=== PATIENT | male | born 1940 | race Caucasian/White ===

== ENCOUNTER 2016-12-12 12:54 | Inpatient (IN) | payer OTHER ==
[~2016-12-12] VITALS: Ht 170.2 cm; Wt 69.0 kg
[~2016-12-12 12:54] MED LIST: ALLOPURINOL100 MG PO; AMLODIPINE BESY10 MG PO; AMOXICILLIN500 M1 PO; BABY ASPIRIN81 M1 PO; BAYER ASPIRIN325 M1 PO; CLEAR LAX; COMPAZINE10 MG PO; DAILY VITAMIN1 EAC4 PO; MICRONASE2.5 MG PO; MULTIVITAMIN; PRAVACHOL80 MG PO; PRINIVIL20 MG PO; REFRESH LACRI-3.5 GM LEFT EYE; REFRESH TEARS15 ML LEFT EYE; SIMVASTATIN40 MG PO; TOPROL XL50 MG PO; VITAMIN D; XALATAN2.5 ML BOTH EYES; ZANTAC300 MG; ZESTRIL,PRINIVI20 MG PO; ZOLPIDEM TARTRAT5 MG PO
[2016-12-12 13:32] LABS: BASOPHIL COUNT 0.1 K/uL (0-0.1); EOSINOPHIL (%) 0.2 % (0-5); HEMATOCRIT 33.8 % (38.0-50.0); IMMATURE GRANULOCYTE (%) 0.6 % (0.0-0.7); IMMATURE GRANULOCYTE COUNT 0.1 K/uL; INSTRUMENT ABS NEUTROPHIL CT 12.6 K/uL; LYMPHOCYTE COUNT 1.3 K/uL (1.0-2.8); MCH 30.8 PG (29.0-34.0); MCHC 32.2 G/DL (30.0-36.0); MCV 95.5 FL (86-99); MEAN PLAT.VOLUME 9.7 uM^3 (9.0-12.4); MONOCYTE (%) 8.6 % (3-12); MONOCYTE COUNT 1.3 K/uL (0-0.8); NEUTROPHIL (%) 81.6 % (45-76); NEUTROPHIL COUNT 12.6 K/uL (1.8-6.4); PLATELET COUNT 329 K/uL (156-360); RBC DIS.WIDTH-CV 16.2 % (11.8-14.6); RBC DIS.WIDTH-SD 56.4 % (39-53); RED BLOOD COUNT 3.54 M/uL (4.00-5.50); WHITE BLOOD COUNT 15.5 K/uL (4.1-10.2)
[2016-12-12 13:40] LABS: CHLORIDE 107 mEq/L (99-109); POTASSIUM 4.8 mEq/L (3.7-5.4); SODIUM 138 mEq/L (136-147)
[2016-12-12 13:42] LABS: GLUCOSE 156 mg/dL (70-99)
[2016-12-12 13:44] LABS: ANION GAP 14 MEQ/L (2-14)
[2016-12-12 13:46] LABS: GFR ESTIMATE (CALCULATED) 57 mL/min/
[2016-12-12 13:47] LABS: UREA NITROGEN (BUN) 23 mg/dL (9-23)
[2016-12-12 13:52] LABS: TROP-I INTERPRETATION NEGATIVE; TROPONIN-I < 0.01 ng/mL (0.0-0.30)
[2016-12-12 14:34] LABS: BILIRUBIN NEGATIVE; BLOOD NEGATIVE; COLOR YELLOW ((YELLOW)); GLUCOSE (STRIP) NEGATIVE; KETONES 5; LEUKOCYTES NEGATIVE; NITRITE NEGATIVE; PROTEIN (STRIP) 30; SPECIFIC GRAVITY 1.017 (1.000-1.030); UROBILINOGEN 0.2 MG/DL (0.2-1.0)
[2016-12-12 14:44] LABS: ADD MIUA? NO; UCUL ADDED? NO
[2016-12-12] MEDS ORDERED: LISINOPRIL10 MG PO (15:28)
[2016-12-12] MEDS ORDERED: VITAMIN D32000 UNI1 PO (15:29)
[2016-12-12] MEDS ORDERED: ASPIR 8181 M1 PO (15:29)
[2016-12-12] MEDS ORDERED: FLONASE16 G1 BOTH NARES (15:31)
[2016-12-12] MEDS ORDERED: ADVAIR 250/501 DISK IH (15:32)
[2016-12-12] MEDS ORDERED: PROAIR RESPICL90 MCG IH (15:32)
[2016-12-12 18:14] VITALS: BP 93/45
[2016-12-12 20:15] LABS: INFLUENZA A VIRAL ANTIGEN NEGATIVE; INFLUENZA B VIRAL ANTIGEN NEGATIVE
[2016-12-12 20:55] LABS: METH RESISTANT S AUREUS PCR NEGATIVE (NEGATIVE)
[2016-12-12 20:57] LABS: PROBE CHECK PASS; SPECIMEN PROCESSING CONTROL PASS
[2016-12-12 22:47] VITALS: BP 82/38
[2016-12-13 05:04] VITALS: BP 99/54
[2016-12-13 06:30] LABS: EOSINOPHIL (%) 0.7 % (0-5); EOSINOPHIL COUNT 0.1 K/uL (0-0.3); HEMATOCRIT 28.4 % (38.0-50.0); IMMATURE GRANULOCYTE (%) 0.7 % (0.0-0.7); IMMATURE GRANULOCYTE COUNT 0.1 K/uL; LYMPHOCYTE COUNT 1.4 K/uL (1.0-2.8); MCH 31.2 PG (29.0-34.0); MCV 97.3 FL (86-99); MEAN PLAT.VOLUME 10.1 uM^3 (9.0-12.4); MONOCYTE (%) 10.8 % (3-12); MONOCYTE COUNT 1.2 K/uL (0-0.8); NEUTROPHIL (%) 74.4 % (45-76); PLATELET COUNT 261 K/uL (156-360); RBC DIS.WIDTH-CV 16.5 % (11.8-14.6); RBC DIS.WIDTH-SD 58.7 % (39-53); RED BLOOD COUNT 2.92 M/uL (4.00-5.50)
[2016-12-13 06:40] LABS: WHITE BLOOD COUNT 10.7 K/uL (4.1-10.2)
[2016-12-13 07:37] VITALS: BP 99/50
[2016-12-13 08:31] LABS: INTERNAL CONTROL VALID? YES
[2016-12-13 11:35] LABS: POINT-OF-CARE METER ID UU13113725
[2016-12-13 15:30] VITALS: BP 107/51
[2016-12-13 15:57] LABS: POINT-OF-CARE METER ID UU13113725
[2016-12-13 23:49] VITALS: BP 118/68
[2016-12-14 06:58] LABS: BASOPHIL COUNT 0.1 K/uL (0-0.1); EOSINOPHIL (%) 1.4 % (0-5); EOSINOPHIL COUNT 0.1 K/uL (0-0.3); HEMATOCRIT 29.9 % (38.0-50.0); IMMATURE GRANULOCYTE (%) 1.1 % (0.0-0.7); IMMATURE GRANULOCYTE COUNT 0.1 K/uL; INSTRUMENT ABS NEUTROPHIL CT 7.6 K/uL; LYMPHOCYTE COUNT 0.9 K/uL (1.0-2.8); MCH 31.1 PG (29.0-34.0); MCHC 32.4 G/DL (30.0-36.0); MCV 95.8 FL (86-99); MONOCYTE (%) 11.3 % (3-12); MONOCYTE COUNT 1.1 K/uL (0-0.8); NEUTROPHIL (%) 76.9 % (45-76); NEUTROPHIL COUNT 7.6 K/uL (1.8-6.4); PLATELET COUNT 291 K/uL (156-360); RBC DIS.WIDTH-CV 16.5 % (11.8-14.6); RED BLOOD COUNT 3.12 M/uL (4.00-5.50); WHITE BLOOD COUNT 9.9 K/uL (4.1-10.2)
[2016-12-14 07:40] VITALS: BP 103/51
[2016-12-14 11:02] VITALS: BP 101/54
[2016-12-14 15:55] VITALS: BP 105/53
[2016-12-14 23:12] VITALS: BP 116/64
[2016-12-15 07:53] VITALS: BP 95/54
[2016-12-15 16:32] VITALS: BP 104/58
[2016-12-15 23:07] VITALS: BP 125/58
[2016-12-16 07:00] VITALS: BP 148/75
[2016-12-16] MEDS ORDERED: AZITHROMYCIN500 M1 PO (11:48)
== END 2016-12-16 13:07 | disposition home health service (06) | DRG 177 ==
LOC: EME 12:54 → 5EAST 15:35 → EDOF 15:35 → 5EAST 17:38
PROVIDERS: Emergency Medicine; Hospitalist; Internal Medicine
DX: J15.8 Pneumonia due to other specified bacteria (principal); J96.01 Acute respiratory failure with hypoxia; C78.01 Secondary malignant neoplasm of right lung; C78.02 Secondary malignant neoplasm of left lung; J44.9 Chronic obstructive pulmonary disease, unspecified; E11.9 Type 2 diabetes mellitus without complications; I10 Essential (primary) hypertension; Z87.891 Personal history of nicotine dependence; Z85.89 Personal history of malignant neoplasm of other organs and systems
CPT/HCPCS: 71020; 71250; 80048; 80048 91; 81003; 82948; 83605; 84484; 85025; 85027; 87040; 87070; 87077; 87185; 87205; 87449; 87502; 87641; 93005; 94640; 94640 76; 94799; 99202; 99281; 99285; J0456; J0692; J0696; J1650; J1815; J2543; J3370; J7050

== ENCOUNTER 2017-06-13 18:55 | Inpatient (IN) | payer OTHER ==
[~2017-06-13] VITALS: Ht 162.6 cm; Wt 68.2 kg
[~2017-06-13 18:55] MED LIST changes: +ADVAIR 250/501 DISK IH; +ASPIR 8181 M1 PO; +AZITHROMYCIN500 M1 PO; +FLONASE16 G1 BOTH NARES; +LISINOPRIL10 MG PO; +PROAIR RESPICL90 MCG IH; +REFRESH TEARS15 ML BOTH EYES; -REFRESH TEARS15 ML LEFT EYE; +VITAMIN D32000 UNI1 PO
[2017-06-13 20:04] LABS: HEMATOCRIT 46.7 % (38.0-50.0); MCH 32.5 PG (29.0-34.0); MCHC 34.7 G/DL (30.0-36.0); MCV 93.8 FL (86-99); MEAN PLAT.VOLUME 10.7 uM^3 (9.0-12.4); PLATELET COUNT 171 K/uL (156-360); RBC DIS.WIDTH-CV 13.3 % (11.8-14.6); RBC DIS.WIDTH-SD 46.2 % (39-53); RED BLOOD COUNT 4.98 M/uL (4.00-5.50); WHITE BLOOD COUNT 10.6 K/uL (4.1-10.2)
[2017-06-13 20:21] LABS: CHLORIDE 103 mEq/L (99-109); SODIUM 140 mEq/L (136-147)
[2017-06-13 20:23] LABS: GLUCOSE 192 mg/dL (70-99)
[2017-06-13 20:25] LABS: ANION GAP 15 MEQ/L (2-14)
[2017-06-13 20:27] LABS: ALKALINE PHOSPHATASE 65 IU/L (3-129); GFR ESTIMATE (CALCULATED) 52 mL/min/
[2017-06-13 20:28] LABS: UREA NITROGEN (BUN) 26 mg/dL (9-23)
[2017-06-13 20:30] LABS: LIPASE 85 U/L (1.0-51.0)
[2017-06-13 20:42] LABS: ADD MIUA? YES; BILIRUBIN NEGATIVE; BLOOD NEGATIVE; COLOR YELLOW ((YELLOW)); GLUCOSE (STRIP) 50; KETONES 20; LEUKOCYTES NEGATIVE; NITRITE NEGATIVE; PROTEIN (STRIP) 100; SPECIFIC GRAVITY 1.024 (1.000-1.030); UROBILINOGEN 0.2 MG/DL (0.2-1.0)
[2017-06-13 21:07] LABS: BACTERIA NONE SEEN /HPF; EPITHELIAL CELLS RARE /HPF; HYALINE CASTS 0-5 /LPF; MUCUS TRACE /LPF; RED BLOOD CELLS 0-5 /HPF (0-5); UCUL ADDED? NO; WHITE BLOOD CELLS 0-5 /HPF (0-5)
[2017-06-14 06:17] LABS: HEMATOCRIT 43.1 % (38.0-50.0); MCH 31.9 PG (29.0-34.0); MCHC 33.9 G/DL (30.0-36.0); MCV 94.1 FL (86-99); MEAN PLAT.VOLUME 10.5 uM^3 (9.0-12.4); PLATELET COUNT 171 K/uL (156-360); RBC DIS.WIDTH-CV 13.5 % (11.8-14.6); RBC DIS.WIDTH-SD 46.2 % (39-53); RED BLOOD COUNT 4.58 M/uL (4.00-5.50); WHITE BLOOD COUNT 9.4 K/uL (4.1-10.2)
[2017-06-14 06:51] LABS: ANION GAP 9 MEQ/L (2-14); CHLORIDE 108 MEQ/L (99-109); GFR ESTIMATE (CALCULATED) > 59 mL/min/; GLUCOSE 173 mg/dL (70-99); POTASSIUM 4.5 MEQ/L (3.7-5.4); SAMPLE HEMOLYSIS CHECK 0; SAMPLE ICTERIC CHECK 0; SAMPLE LIPEMIA CHECK 0; SODIUM 140 MEQ/L (136-147); UREA NITROGEN (BUN) 24 mg/dL (9-23)
[2017-06-14 08:23] VITALS: BP 118/56
[2017-06-14 11:38] LABS: POINT-OF-CARE METER ID UU13113774
[2017-06-14] MEDS ORDERED: VITAMIN D31000 UNI2 PO (12:00)
[2017-06-14 15:22] VITALS: BP 161/66
[2017-06-14 16:26] LABS: POINT-OF-CARE METER ID UU13113774
[2017-06-14 19:05] VITALS: BP 113/56
[2017-06-14 21:17] LABS: POINT-OF-CARE METER ID UU13113774
[2017-06-15 00:44] VITALS: BP 133/64
[2017-06-15 05:32] LABS: POINT-OF-CARE METER ID UU13113774
[2017-06-15 05:55] LABS: HEMATOCRIT 40.3 % (38.0-50.0); MCH 32.9 PG (29.0-34.0); MCHC 34.5 G/DL (30.0-36.0); MCV 95.3 FL (86-99); PLATELET COUNT 171 K/uL (156-360); RBC DIS.WIDTH-CV 13.9 % (11.8-14.6); RBC DIS.WIDTH-SD 48.4 % (39-53); RED BLOOD COUNT 4.23 M/uL (4.00-5.50); WHITE BLOOD COUNT 15.7 K/uL (4.1-10.2)
[2017-06-15 05:59] VITALS: BP 113/56
[2017-06-15 06:17] LABS: ANION GAP 11 MEQ/L (2-14); CHLORIDE 106 MEQ/L (99-109); GFR ESTIMATE (CALCULATED) 57 mL/min/; GLUCOSE 174 mg/dL (70-99); POTASSIUM 4.3 MEQ/L (3.7-5.4); SAMPLE HEMOLYSIS CHECK 0; SAMPLE ICTERIC CHECK 0; SAMPLE LIPEMIA CHECK 0; SODIUM 140 MEQ/L (136-147); UREA NITROGEN (BUN) 29 mg/dL (9-23)
[2017-06-15 07:44] VITALS: BP 96/51
[2017-06-15 11:20] VITALS: BP 136/59
[2017-06-15 12:06] LABS: POINT-OF-CARE METER ID UU13113725
[2017-06-15 15:40] VITALS: BP 140/65
[2017-06-15 17:02] LABS: POINT-OF-CARE METER ID UU13113774
[2017-06-15 21:22] LABS: POINT-OF-CARE METER ID UU13113725
[2017-06-15 22:57] VITALS: BP 150/67
[2017-06-16] MEDS ORDERED: ADVAIR HFA120 INHALA IH (08:16)
[2017-06-16] MEDS ORDERED: DECADRON4 MG PO (08:16)
[2017-06-16 09:01] VITALS: BP 122/57
[2017-06-16 11:50] LABS: POINT-OF-CARE METER ID UU13113774
== END 2017-06-16 16:26 | disposition home health service (06) | DRG 54 ==
LOC: EME 18:55 → 5EAST 23:18 → EDOF 23:18 → ENRESERV 23:20 → 5EAST 06-14 00:01 → ENPENDDIS 06-16 → 5EAST 06-16 16:26
PROVIDERS: Hospitalist
DX: C79.31 Secondary malignant neoplasm of brain (principal); G93.6 Cerebral edema; C78.02 Secondary malignant neoplasm of left lung; C78.01 Secondary malignant neoplasm of right lung; C07 Malignant neoplasm of parotid gland; E78.00 Pure hypercholesterolemia, unspecified; N40.0 Benign prostatic hyperplasia without lower urinary tract symptoms; N18.9 Chronic kidney disease, unspecified; M10.9 Gout, unspecified; K21.9 Gastro-esophageal reflux disease without esophagitis; J44.9 Chronic obstructive pulmonary disease, unspecified; E11.22 Type 2 diabetes mellitus with diabetic chronic kidney disease; H40.9 Unspecified glaucoma; I12.9 Hypertensive chronic kidney disease with stage 1 through stage 4 chronic kidney disease, or unspecified chronic kidney disease; I70.1 Atherosclerosis of renal artery; T38.0X5A Adverse effect of glucocorticoids and synthetic analogues, initial encounter; F10.10 Alcohol abuse, uncomplicated; Y90.9 Presence of alcohol in blood, level not specified; Z79.51 Long term (current) use of inhaled steroids; Z87.891 Personal history of nicotine dependence; Z92.3 Personal history of irradiation; Z79.84 Long term (current) use of oral hypoglycemic drugs; Z79.82 Long term (current) use of aspirin
CPT/HCPCS: 70450; 70553; 74176; 77290; 77307; 77334; 77412; 77417; 80048; 80053; 81003; 82948; 83690; 85027; 90686; 94640; 94640 76; 99202; 99281; 99283; J1100; J1644; J1815; J2405; J7030

== ENCOUNTER 2017-07-05 22:01 | Inpatient (IN) | payer OTHER ==
[~2017-07-05] VITALS: Ht 170.2 cm; Wt 72.5 kg
[~2017-07-05 22:01] MED LIST changes: +ADVAIR HFA120 INHALA IH; +DECADRON4 MG PO; +VITAMIN D31000 UNI2 PO
[2017-07-05 22:35] LABS: EOSINOPHIL (%) 0.1 % (0-5); HEMATOCRIT 29.6 % (38.0-50.0); IMMATURE GRANULOCYTE (%) 2.4 % (0.0-0.7); IMMATURE GRANULOCYTE COUNT 0.4 K/uL; INSTRUMENT ABS NEUTROPHIL CT 12.6 K/uL; LYMPHOCYTE COUNT 2.2 K/uL (1.0-2.8); MCH 32.5 PG (29.0-34.0); MCHC 31.4 G/DL (30.0-36.0); MONOCYTE (%) 2.7 % (3-12); MONOCYTE COUNT 0.4 K/uL (0-0.8); NEUTROPHIL (%) 80.6 % (45-76); NEUTROPHIL COUNT 12.6 K/uL (1.8-6.4); RBC DIS.WIDTH-CV 13.5 % (11.8-14.6); RBC DIS.WIDTH-SD 51.6 % (39-53); WHITE BLOOD COUNT 15.6 K/uL (4.1-10.2)
[2017-07-05 22:36] LABS: INTER. NORMALIZED RATIO 1.1
[2017-07-05 22:38] LABS: PTT 35.4 SEC (25-37)
[2017-07-05 22:38] LABS: AMYLASE 88 IU/L (1-118); CHLORIDE 107 mEq/L (99-109); SODIUM 134 mEq/L (136-147)
[2017-07-05 22:39] LABS: POTASSIUM 6.3 mEq/L (3.7-5.4)
[2017-07-05 22:40] LABS: MCV 103.5 FL (86-99); RED BLOOD COUNT 2.86 M/uL (4.00-5.50)
[2017-07-05 22:42] LABS: ANION GAP 14 MEQ/L (2-14)
[2017-07-05 22:43] LABS: SERUM ETHYL ALCOHOL < 10 mg/dL
[2017-07-05 22:47] LABS: LIPASE 58 U/L (1.0-51.0)
[2017-07-05 22:59] LABS: GFR ESTIMATE (CALCULATED) 29 mL/min/; GLUCOSE 728 mg/dL (70-99); UREA NITROGEN (BUN) 111 mg/dL (9-23)
[2017-07-05 23:10] LABS: TROP-I INTERPRETATION NEGATIVE; TROPONIN-I 0.11 ng/mL (0.0-0.30)
[2017-07-05 23:22] LABS: BICARBONATE 15.8 mEq/L (22-26); CARBOXY HGB 1.9 % (0-5); METHEMOGLOBIN 0.9 % (0-1.5); PCO2 61 mm Hg (35-45); PO2 107 mm Hg (80-100)
[2017-07-05 23:23] LABS: CONTINUOUS POS AIRWAY PRESSURE 5 cm H2O; DEVICE 840; FI02 100 %; MECHANICAL RATE 16 resp/min; MODE AC; SITE RR; TIDAL VOLUME 450 ML; TOTAL RESP RATE 16 resp/min; pH 7.02 (7.35-7.45)
[2017-07-05 23:39] LABS: AMPHETAMINE NEGATIVE (500 ng/mL); BARBITURATES NEGATIVE (200 ng/mL); BENZODIAZEPINES NEGATIVE (150 ng/mL); COCAINE NEGATIVE (150 ng/mL); INTERNAL CONTROLS VALID? YES; METHADONE NEGATIVE (200 ng/mL); METHAMPHETAMINE NEGATIVE (500 ng/mL); OPIATES (MORPHINE) NEGATIVE (100 ng/mL); OXYCODONE NEGATIVE (100 ng/mL); PHENCYCLIDINE NEGATIVE (25 ng/mL); PROPOXYPHENE NEGATIVE (300 ng/mL); THC CANNABINOIDS NEGATIVE (50 ng/mL); TRICYCLIC ANTIDEPRESSANTS NEGATIVE (300 ng/mL)
[2017-07-05 23:54] LABS: COLOR PALE YELLOW ((YELLOW)); GLUCOSE (STRIP) 2000 OR MORE; KETONES NEGATIVE; LEUKOCYTES NEGATIVE; NITRITE NEGATIVE; PH, URINE 6 (5-8); PROTEIN (STRIP) 30; UROBILINOGEN 0.2 MG/DL (0.2-1.0)
[2017-07-05 23:55] LABS: ADD MIUA? YES; BILIRUBIN NEGATIVE; BLOOD MODERATE
[2017-07-06] VITALS (11 sets, daily range): BP systolic 59–148; BP diastolic 46–121
[2017-07-06 00:09] LABS: PLAT.SUFFICIENCY DECREASED
[2017-07-06 00:10] LABS: PLATELET COUNT 94 K/uL (156-360)
[2017-07-06] MEDS ORDERED: DECADRON4 MG PO (00:45)
[2017-07-06] MEDS ORDERED: GLYBURIDE5 MG PO (00:47)
[2017-07-06] MEDS ORDERED: OMEPRAZOLE40 M1 PO (00:48)
[2017-07-06 01:17] LABS: BASE EXCESS -11.4 mEq/L (-3 to +3); BICARBONATE 18.4 mEq/L (22-26); CARBOXY HGB 1.4 % (0-5); PCO2 58 mm Hg (35-45)
[2017-07-06 01:18] LABS: COMMENTS - BLOOD GASES C+; DEVICE 840; FI02 100 %; MECHANICAL RATE 22 resp/min; MODE AC; PEEP 5 CM/H20; PO2 426 mm Hg (80-100); SITE RB; TIDAL VOLUME 450 ML; TOTAL RESP RATE 22 resp/min; pH 7.11 (7.35-7.45)
[2017-07-06 01:46] LABS: BACTERIA 1+ /HPF; EPITHELIAL CELLS RARE /HPF; HYALINE CASTS 15-20 /LPF; MUCUS 2+ /LPF; UCUL ADDED? YES; WHITE BLOOD CELLS 20-30 /HPF (0-5); WHITE BLOOD CELLS CLUMP RARE /HPF (0-5)
[2017-07-06 02:43] LABS: POINT-OF-CARE METER ID UU13113731
[2017-07-06 03:16] LABS: METH RESISTANT S AUREUS PCR NEGATIVE (NEGATIVE)
[2017-07-06 03:21] LABS: PROBE CHECK PASS; SPECIMEN PROCESSING CONTROL PASS
[2017-07-06 03:36] LABS: BASE EXCESS -7.1 mEq/L (-3 to +3); CARBOXY HGB 2.3 % (0-5); METHEMOGLOBIN 1.5 % (0-1.5)
[2017-07-06 03:38] LABS: BICARBONATE 24.2 mEq/L (22-26); COMMENTS - BLOOD GASES C+; DEVICE VENT; FI02 100 %; MECHANICAL RATE 22 resp/min; MODE A/C; PCO2 78 mm Hg (35-45); PEEP 6 CM/H20; PO2 138 mm Hg (80-100); SITE L ALINE; TIDAL VOLUME 450 ML; TOTAL RESP RATE 22 resp/min
[2017-07-06 03:58] LABS: POINT-OF-CARE METER ID UU14162636
[2017-07-06 04:27] LABS: HEMATOCRIT 50.6 % (38.0-50.0); MCH 29.7 PG (29.0-34.0); MCHC 33.2 G/DL (30.0-36.0); PLATELET COUNT 69 K/uL (156-360); RBC DIS.WIDTH-SD 48.5 % (39-53); WHITE BLOOD COUNT 2.6 K/uL (4.1-10.2)
[2017-07-06 04:28] LABS: MCV 89.4 FL (86-99); RED BLOOD COUNT 5.66 M/uL (4.00-5.50)
[2017-07-06 04:31] LABS: INTER. NORMALIZED RATIO 1.1; PROTHROMBIN TIME 12.5 SEC (10.2-12.9)
[2017-07-06 04:44] LABS: TROP-I INTERPRETATION INDETERMINATE; TROPONIN-I 0.31 ng/mL (0.0-0.30)
[2017-07-06 04:44] LABS: CHLORIDE 116 mEq/L (99-109); POTASSIUM 4.4 mEq/L (3.7-5.4); SODIUM 151 mEq/L (136-147)
[2017-07-06 04:47] LABS: MAGNESIUM 1.6 mg/dL (1.3-2.7)
[2017-07-06 04:47] LABS: GLUCOSE 253 mg/dL (70-99)
[2017-07-06 04:48] LABS: ANION GAP 12 MEQ/L (2-14); TOTAL BILIRUBIN 0.8 mg/dL (0.0-1.0)
[2017-07-06 04:50] LABS: ALKALINE PHOSPHATASE 59 IU/L (3-129); GFR ESTIMATE (CALCULATED) 45 mL/min/
[2017-07-06 04:51] LABS: UREA NITROGEN (BUN) 84 mg/dL (9-23)
[2017-07-06 04:56] LABS: POINT-OF-CARE METER ID UU14162636
[2017-07-06 08:05] LABS: POINT-OF-CARE METER ID UU13113747
== END 2017-07-06 05:18 | DRG 871 ==
LOC: EME 22:01 → EDOF 07-06 00:09 → ENRESERV 07-06 00:09 → 4WEST 07-06 01:45
PROVIDERS: Emergency Medicine; Specialist; Surgery
PROC: 30233N1 Transfusion of Nonautologous Red Blood Cells into Peripheral Vein, Percutaneous Approach (ICD-10-PCS; principal; 2017-07-05)
PROC: 5A1935Z Respiratory Ventilation, Less than 24 Consecutive Hours (ICD-10-PCS; principal; 2017-07-05)
PROC: 5A12012 Performance of Cardiac Output, Single, Manual (ICD-10-PCS; principal; 2017-07-05)
PROC: 0BH17EZ Insertion of Endotracheal Airway into Trachea, Via Natural or Artificial Opening (ICD-10-PCS; principal; 2017-07-05)
PROC: 06HY33Z Insertion of Infusion Device into Lower Vein, Percutaneous Approach (ICD-10-PCS; principal; 2017-07-05)
PROC: 05H533Z Insertion of Infusion Device into Right Subclavian Vein, Percutaneous Approach (ICD-10-PCS; 2017-07-06)
PROC: 03HY32Z Insertion of Monitoring Device into Upper Artery, Percutaneous Approach (ICD-10-PCS; 2017-07-06)
PROC: 30233R1 Transfusion of Nonautologous Platelets into Peripheral Vein, Percutaneous Approach (ICD-10-PCS; 2017-07-06)
PROC: 30233L1 Transfusion of Nonautologous Fresh Plasma into Peripheral Vein, Percutaneous Approach (ICD-10-PCS; 2017-07-06)
DX: R57.1 Hypovolemic shock (principal); R57.8 Other shock; I46.9 Cardiac arrest, cause unspecified; J96.00 Acute respiratory failure, unspecified whether with hypoxia or hypercapnia; D62 Acute posthemorrhagic anemia; J18.9 Pneumonia, unspecified organism; K92.2 Gastrointestinal hemorrhage, unspecified; N17.9 Acute kidney failure, unspecified; C07 Malignant neoplasm of parotid gland; C78.00 Secondary malignant neoplasm of unspecified lung; C79.31 Secondary malignant neoplasm of brain; J44.0 Chronic obstructive pulmonary disease with (acute) lower respiratory infection; D69.6 Thrombocytopenia, unspecified; E11.65 Type 2 diabetes mellitus with hyperglycemia; E87.4 Mixed disorder of acid-base balance; E87.5 Hyperkalemia; I12.9 Hypertensive chronic kidney disease with stage 1 through stage 4 chronic kidney disease, or unspecified chronic kidney disease; N18.9 Chronic kidney disease, unspecified; R10.9 Unspecified abdominal pain; E78.5 Hyperlipidemia, unspecified; M19.90 Unspecified osteoarthritis, unspecified site; K21.9 Gastro-esophageal reflux disease without esophagitis; Z92.3 Personal history of irradiation; Z87.891 Personal history of nicotine dependence
CPT/HCPCS: 36415; 36600; 70450; 71010; 74176; 80048; 80048 91; 80053; 80069; 81003; 81015; 82150; 82330; 82570; 82803; 82948; 83036 GA; 83605; 83690; 83735; 83970 GA; 84100; 84156; 84484; 84550; 85025; 85027; 85610; 85730; 86850; 86900; 86901; 86920; 87040; 87070; 87077; 87086; 87185; 87186; 87205; 87641; 87801; 93005; 94002; 99281; 99285; C1751; C1894; C9113; G0480; J0610; J1815; J1940; J2543; J3010; J7030; J7050; P9016; P9017; P9035